=== PATIENT | female | born 1980 | race Caucasian/White ===

== ENCOUNTER → 2018-06-01 | Outpatient (CLI) | payer OTHER ==
--- NOTE | 2018-06-01 12:38 | RADIOLOGY REPORT (SQ) ---
EXAM DESCRIPTION: NM GASTRIC EMPTYING STUDY COMPLETED DATE/TIME: 06/01/2018 12:22 pm REASON FOR STUDY: ESOPHAGITIS REFLUX (K21.0), EARLY SATIETY (R68.81) K21.0 GASTRO-ESOPHAGEAL REFLUX DISEASE WITH ESOPHAGITIS R68.81 EARLY SATIETY COMPARISON: None. RADIONUCLIDE AND DOSE: 2 millicuries Tc-99m Sulfur Colloid. Egg salad sandwich with water The route of agent administration: Oral. TECHNIQUE: 1 minute serial static imaging performed at time of meal, 30 minutes, 60 minutes, 90 shaylee mor, 120 minutes, and 180 minutes as needed. Once stomach reaches 90% emptying, the test is complete . Image intensity values plotted with respect to time with linear regression algorithm. LIMITATIONS: None. FINDINGS: Patient was observed for 3 hours hours. Immediate post meal serves as baseline. Gastric emptying at 30 minutes minutes was 31.3%. Gastric emptying at 60 minutes was 52.8% Gastric emptying at 90 minutes was 67.6%. Gastric emptying at 120 minutes was 77.7%. Gastric emptying at 180 minutes was 95% Normal values: 60 minutes: 30-90% retained. If less than 30%, abnormally rapid emptying. If greater than 90%, del ayed gastric emptying. 120 minutes: <60% retained. If greater than 60%, delayed gastric emptying. 240 minutes: <10% retained. If greater than 10%, delayed gastric emptying. IMPRESSION: NORMAL GASTRIC EMPTYING. TECHNICAL DOCUMENTATION: JOB ID: [id number] [employer]- All Rights Reserved rev Reading location - IP/workstation name: [email or web address]
== END ==
LOC: RAD 07:37
PROVIDERS: ATTEND Internal Medicine Gastroenterology
DX: K21.0 Gastro-esophageal reflux disease with esophagitis (principal); R68.81 Early satiety
CPT/HCPCS: 78264; A9541